=== PATIENT | female | born 1940 | race Caucasian/White ===

== ENCOUNTER 2022-10-12 10:06 | Inpatient (IN) | payer MEDICARE ==
[2022-10-12] MEDS ORDERED: Albuterol/Ipratropium 3.0-0.5 MG/3 ML Neb Soln NEB ONE (10:23)
[2022-10-12] MEDS: Sodium Chloride 0.9% 10 ML Syringe FLUSH PRN (10:25)
[2022-10-12 10:41] LABS: HEMATOCRIT 27.6 % (37.0-47.0); HEMOGLOBIN 8.8 g/dL (12.0-16.0); MEAN CORPUSCULAR HEMOGLOBIN 32.5 pg (27.0-34.0); MEAN CORPUSCULAR HGB CONC 31.9 g/dL (33.0-35.0); MEAN CORPUSCULAR VOLUME 101.8 fL (80-100); PLATELET COUNT,PLT 201 10^3/uL (150-450); RED BLOOD CELL COUNT 2.71 10^6/uL (4.2-5.4); WHITE BLOOD CELL COUNT,WBC 6.3 10^3/uL (5.0-10.0)
[2022-10-12 10:59] LABS: PROTHROMBIN TIME 10.2 SEC (9.0-12.0); PTT,PARTIAL THROMBOPLSTIN TIME 26.7 SEC (22.0-34.0)
[2022-10-12 11:00] LABS: BASOPHILS PERCENT AUTO 2.7 % (0.0-1.0); LYMPHOCYTES PERCENT AUTO 17.2 % (20.5-50.1); MONOCYTES PERCENT AUTO 21.2 % (2-8); NEUTROPHILS PERCENT AUTO 58.9 % (42.2-75.2)
[2022-10-12 11:05] LABS: BAND PERCENT MAN 16 %; LACTIC ACID 1.8 mmol/L (0.4-2.0); LYMPHOCYTES PERCENT MAN 23 % (20-50); MONOCYTES PERCENT MAN 12 % (2-8); SEG NEUTROPHILS PERCENT MAN 49 % (42-75)
[2022-10-12 11:08] LABS: ALBUMIN 2.9 g/dL (3.4-5.0); ANION GAP 12.6 mEq/L (7-13); BILIRUBIN TOTAL 1.3 mg/dL (0.2-1.0); CALCIUM 8.8 mg/dL (8.5-10.1); CREATININE 0.8 mg/dL (0.55-1.02); EST CRCL DRUG DOSING (CG) 47.95 mL/min; MAGNESIUM 1.8 mg/dL (1.8-2.4); POTASSIUM,K 3.6 mmol/L (3.5-5.1); PROTEIN TOTAL,TP 7.2 g/dL (6.4-8.2)
[2022-10-12 11:15] LABS: A/G RATIO 0.67
[2022-10-12 11:16] LABS: C-REACTIVE PROTEIN 16.5 mg/dL (0.0-0.9)
[2022-10-12] MEDS ORDERED: Iopamidol 755 Mg/ML 100 ML Bottle IVPUSH ONE (11:21)
[2022-10-12] MEDS ORDERED: Acetaminophen 500 MG Tab PO ONE (12:11)
[2022-10-12 13:39] LABS: APPEARANCE,URINE SLIGHTLY CLOUDY (CLEAR); BILIRUBIN,URINE NEGATIVE (NEGATIVE); COLOR,URINE YELLOW (YELLOW); GLUCOSE,URINE NEGATIVE (NEGATIVE); KETONES,URINE 40 (NEGATIVE); LEUKOCYTE ESTERASE,URINE SMALL (NEGATIVE); NITRITE,URINE NEGATIVE (NEGATIVE); OCCULT BLOOD,URINE TRACE-INTACT (NEGATIVE); PROTEIN,URINE 30 (NEGATIVE)
[2022-10-12] MEDS ORDERED: Sennosides/Docusate Sodium 50-8.6 MG Tab PO PRN (13:41)
[2022-10-12] MEDS ORDERED: Magnesium Hydroxide 400 MG/5 ML Susp 30 ML Cup PO PRN (13:41)
[2022-10-12] MEDS ORDERED: Polyethylene Glycol 3350 Powder 17 GM Packet PO PRN (13:41)
[2022-10-12] MEDS ORDERED: Ondansetron 4 MG/2 ML SDV IVPUSH PRN (13:41)
[2022-10-12] MEDS ORDERED: Albuterol/Ipratropium 3.0-0.5 MG/3 ML Neb Soln NEB PRN (13:41)
[2022-10-12] MEDS ORDERED: HYDROmorphone 0.5 MG/0.5 ML Syringe IVPUSH PRN (13:41)
[2022-10-12] MEDS ORDERED: Acetaminophen/oxyCODONE 325-5 MG Tab PO PRN (13:41)
[2022-10-12] MEDS ORDERED: Acetaminophen 325 MG Tab PO PRN (13:41)
[2022-10-12 13:44] LABS: AMPHETAMINES,URINE NEGATIVE (NEGATIVE); BARBITURATES,URINE NEGATIVE (NEGATIVE); BENZODIAZEPINE,URINE NEGATIVE (NEGATIVE); MDMA (ECSTASY), URINE NEGATIVE (NEGATIVE); METHADONE,URINE NEGATIVE (NEGATIVE); METHAMPHETAMINES,URINE NEGATIVE (NEGATIVE); OPIATES,URINE NEGATIVE (NEGATIVE); OXYCODONE,URINE NEGATIVE (NEGATIVE); PHENCYCLIDINE,URINE NEGATIVE (NEGATIVE); TCA,URINE NEGATIVE (NEGATIVE)
[2022-10-12] MEDS ORDERED: Dexamethasone 4 MG/ML SDV IVPUSH ONE (13:46)
[2022-10-12] MEDS ORDERED: hydrALAZINE 20 MG/ML SDV IVPUSH PRN (13:47)
[2022-10-12] MEDS ORDERED: Metoprolol Tartrate 5 MG/5 ML SDV IVPUSH PRN (13:47)
[2022-10-12] MEDS ORDERED: REMDESIVIR 200 MG in Sodium Chloride 0.9% 250 ML IV ONE ×2 (13:48→17:00)
[2022-10-12] MEDS ORDERED: Glucagon,Human Recombinant 1 MG Vial IM PRN (13:50)
[2022-10-12] MEDS ORDERED: 50% Dextrose in Water 50 ML Syringe IVPUSH PRN (13:50)
[2022-10-12 13:53] LABS: RBC,URINE 0-5 /HPF (0-5); WBC,URINE 20-30 /HPF (0-5/HPF)
[2022-10-12 13:54] LABS: BACTERIA,URINE FEW /HPF (0-FEW/HPF); EPITHELIAL CELLS,URINE MODERATE /HPF (NOT SEEN)
[2022-10-12] MEDS: Insulin Lispro 100 Units/ML 3 ML Vial SUBCUT SCH (17:12)
[2022-10-12] MEDS ORDERED: Famotidine 20 MG Tab PO SCH (21:00)
[2022-10-13 06:53] LABS: HEMATOCRIT 25.4 % (37.0-47.0); HEMOGLOBIN 8.2 g/dL (12.0-16.0); MEAN CORPUSCULAR HEMOGLOBIN 33.1 pg (27.0-34.0); MEAN CORPUSCULAR HGB CONC 32.3 g/dL (33.0-35.0); MEAN CORPUSCULAR VOLUME 102.4 fL (80-100); PLATELET COUNT,PLT 162 10^3/uL (150-450); RED BLOOD CELL COUNT 2.48 10^6/uL (4.2-5.4); WHITE BLOOD CELL COUNT,WBC 7.4 10^3/uL (5.0-10.0)
[2022-10-13 06:59] LABS: NEUTROPHILS PERCENT AUTO 59.8 % (42.2-75.2)
[2022-10-13 07:00] LABS: BASOPHILS PERCENT AUTO 2.3 % (0.0-1.0); MONOCYTES PERCENT AUTO 28.9 % (2-8)
[2022-10-13 07:02] LABS: ALBUMIN 2.5 g/dL (3.4-5.0); ANION GAP 9.9 mEq/L (7-13); BILIRUBIN TOTAL 0.7 mg/dL (0.2-1.0); BUN/CREATININE RATIO 20.8 (No establ ref range); CALCIUM 8.5 mg/dL (8.5-10.1); CREATININE 0.72 mg/dL (0.55-1.02); EST CRCL DRUG DOSING (CG) 52.34 mL/min; MAGNESIUM 2.1 mg/dL (1.8-2.4); POTASSIUM,K 3.9 mmol/L (3.5-5.1); PROTEIN TOTAL,TP 6.7 g/dL (6.4-8.2)
[2022-10-13 07:10] LABS: A/G RATIO 0.6; C-REACTIVE PROTEIN 22.9 mg/dL (0.0-0.9)
[2022-10-13 07:11] LABS: LYMPHOCYTES PERCENT MAN 31 % (20-50); MONOCYTES PERCENT MAN 16 % (2-8); SEG NEUTROPHILS PERCENT MAN 53 % (42-75)
[2022-10-13] MEDS: Furosemide 20 MG Tab PO SCH (08:56)
[2022-10-13] MEDS: Famotidine 20 MG Tab PO SCH (08:56)
[2022-10-13] MEDS: Dexamethasone 6 MG TABLET PO SCH (08:56)
[2022-10-13] MEDS: REMDESIVIR 100 MG in Sodium Chloride 0.9% 100 ML IV SCH (08:57)
[2022-10-13] MEDS: Enoxaparin 40 MG/0.4 ML Syringe SUBCUT SCH (08:57)
[2022-10-13] MEDS: Insulin Lispro 100 Units/ML 3 ML Vial SUBCUT SCH ×3 (09:14→16:54)
[2022-10-14 06:42] LABS: BASOPHILS PERCENT AUTO 2.1 % (0.0-1.0); HEMATOCRIT 25.3 % (37.0-47.0); HEMOGLOBIN 8.1 g/dL (12.0-16.0); LYMPHOCYTES PERCENT AUTO 17.1 % (20.5-50.1); MEAN CORPUSCULAR HEMOGLOBIN 32.8 pg (27.0-34.0); MEAN CORPUSCULAR VOLUME 102.4 fL (80-100); MONOCYTES PERCENT AUTO 31.7 % (2-8); NEUTROPHILS PERCENT AUTO 49.1 % (42.2-75.2); PLATELET COUNT,PLT 171 10^3/uL (150-450); RED BLOOD CELL COUNT 2.47 10^6/uL (4.2-5.4); WHITE BLOOD CELL COUNT,WBC 4.4 10^3/uL (5.0-10.0)
[2022-10-14 07:03] LABS: A/G RATIO 0.63; ALBUMIN 2.5 g/dL (3.4-5.0); ANION GAP 8.7 mEq/L (7-13); BILIRUBIN DIRECT 0.2 mg/dL (0.0-0.2); BILIRUBIN TOTAL 0.5 mg/dL (0.2-1.0); BUN/CREATININE RATIO 25.7 (No establ ref range); C-REACTIVE PROTEIN 11.8 mg/dL (0.0-0.9); CALCIUM 8.6 mg/dL (8.5-10.1); CREATININE 0.7 mg/dL (0.55-1.02); EST CRCL DRUG DOSING (CG) 53.83 mL/min; POTASSIUM,K 3.7 mmol/L (3.5-5.1); PROTEIN TOTAL,TP 6.5 g/dL (6.4-8.2)
[2022-10-14] MEDS: Insulin Lispro 100 Units/ML 3 ML Vial SUBCUT SCH ×3 (08:11→16:51)
[2022-10-14] MEDS: Famotidine 20 MG Tab PO SCH (08:42)
[2022-10-14] MEDS: Dexamethasone 6 MG TABLET PO SCH (08:43)
[2022-10-14] MEDS: Enoxaparin 40 MG/0.4 ML Syringe SUBCUT SCH (08:43)
[2022-10-14] MEDS: REMDESIVIR 100 MG in Sodium Chloride 0.9% 100 ML IV SCH (08:59)
[2022-10-14] MEDS: Furosemide 20 MG Tab PO SCH (09:19)
[2022-10-14] MEDS: Al and Mag Hydroxide/Diphenhydramine/Lidocaine/Simethicone 237 ML Bottle PO PRN ×3 (10:26→20:20)
[2022-10-15] MEDS: Al and Mag Hydroxide/Diphenhydramine/Lidocaine/Simethicone 237 ML Bottle PO PRN ×3 (06:10→22:41)
[2022-10-15 06:44] LABS: HEMATOCRIT 25.6 % (37.0-47.0); HEMOGLOBIN 8.2 g/dL (12.0-16.0); MEAN CORPUSCULAR HEMOGLOBIN 32.8 pg (27.0-34.0); MEAN CORPUSCULAR VOLUME 102.4 fL (80-100); PLATELET COUNT,PLT 184 10^3/uL (150-450); WHITE BLOOD CELL COUNT,WBC 2.5 10^3/uL (5.0-10.0)
[2022-10-15 06:51] LABS: BASOPHILS PERCENT AUTO 3.2 % (0.0-1.0); LYMPHOCYTES PERCENT AUTO 36.4 % (20.5-50.1); NEUTROPHILS PERCENT AUTO 28.4 % (42.2-75.2)
[2022-10-15 07:23] LABS: ALBUMIN 2.5 g/dL (3.4-5.0); ANION GAP 10.4 mEq/L (7-13); BILIRUBIN DIRECT 0.2 mg/dL (0.0-0.2); BILIRUBIN TOTAL 0.6 mg/dL (0.2-1.0); BUN/CREATININE RATIO 21.4 (No establ ref range); C-REACTIVE PROTEIN 5.5 mg/dL (0.0-0.9); CALCIUM 8.6 mg/dL (8.5-10.1); CREATININE 0.7 mg/dL (0.55-1.02); EST CRCL DRUG DOSING (CG) 53.83 mL/min; POTASSIUM,K 3.4 mmol/L (3.5-5.1); PROTEIN TOTAL,TP 6.4 g/dL (6.4-8.2)
[2022-10-15 07:24] LABS: A/G RATIO 0.64
[2022-10-15 08:12] LABS: BAND PERCENT MAN 8 %; LYMPHOCYTES PERCENT MAN 43 % (20-50); MONOCYTES PERCENT MAN 26 % (2-8); MYELOCYTE PERCENT MAN 2; SEG NEUTROPHILS PERCENT MAN 21 % (42-75)
[2022-10-15 08:13] LABS: ANISOCYTOSIS 2+ MODERATE
[2022-10-15 08:14] LABS: PLATELET COUNT ESTIMATE ADEQUATE
[2022-10-15] MEDS: Enoxaparin 40 MG/0.4 ML Syringe SUBCUT SCH (09:17)
[2022-10-15] MEDS: Furosemide 20 MG Tab PO SCH (09:18)
[2022-10-15] MEDS: Dexamethasone 6 MG TABLET PO SCH (09:18)
[2022-10-15] MEDS: Famotidine 20 MG Tab PO SCH (09:18)
[2022-10-15] MEDS: REMDESIVIR 100 MG in Sodium Chloride 0.9% 100 ML IV SCH (09:18)
[2022-10-15] MEDS: Insulin Lispro 100 Units/ML 3 ML Vial SUBCUT SCH ×3 (09:40→16:43)
[2022-10-15] MEDS ORDERED: Potassium Chloride 10 MEQ Tab.ER PO ONE (12:00)
[2022-10-15] MEDS ORDERED: Melatonin 3 MG Tab PO PRN (21:00)
[2022-10-15] MEDS: Sodium Chloride 0.9% 10 ML Syringe FLUSH PRN (22:41)
[2022-10-16 06:24] LABS: HEMATOCRIT 26.6 % (37.0-47.0); HEMOGLOBIN 8.6 g/dL (12.0-16.0); MEAN CORPUSCULAR HGB CONC 32.3 g/dL (33.0-35.0); MEAN CORPUSCULAR VOLUME 101.9 fL (80-100); PLATELET COUNT,PLT 178 10^3/uL (150-450); RED BLOOD CELL COUNT 2.61 10^6/uL (4.2-5.4); WHITE BLOOD CELL COUNT,WBC 2.2 10^3/uL (5.0-10.0)
[2022-10-16 06:26] LABS: LYMPHOCYTES PERCENT AUTO 48.4 % (20.5-50.1); NEUTROPHILS PERCENT AUTO 21.4 % (42.2-75.2)
[2022-10-16 06:27] LABS: BASOPHILS PERCENT AUTO 2.3 % (0.0-1.0); MONOCYTES PERCENT AUTO 27.9 % (2-8)
[2022-10-16 06:49] LABS: ALBUMIN 2.7 g/dL (3.4-5.0); ANION GAP 10.9 mEq/L (7-13); BILIRUBIN DIRECT 0.2 mg/dL (0.0-0.2); BILIRUBIN TOTAL 0.7 mg/dL (0.2-1.0); BUN/CREATININE RATIO 21.1 (No establ ref range); C-REACTIVE PROTEIN 3.5 mg/dL (0.0-0.9); CALCIUM 8.7 mg/dL (8.5-10.1); CREATININE 0.71 mg/dL (0.55-1.02); EST CRCL DRUG DOSING (CG) 53.07 mL/min; MAGNESIUM 1.9 mg/dL (1.8-2.4); POTASSIUM,K 3.9 mmol/L (3.5-5.1); PROTEIN TOTAL,TP 6.5 g/dL (6.4-8.2)
[2022-10-16 06:56] LABS: A/G RATIO 0.71
[2022-10-16] MEDS: Insulin Lispro 100 Units/ML 3 ML Vial SUBCUT SCH (08:09)
[2022-10-16 08:53] LABS: BAND PERCENT MAN 7 %; BASOPHILS PERCENT MAN 1; LYMPHOCYTES PERCENT MAN 56 % (20-50); MONOCYTES PERCENT MAN 18 % (2-8); NRBC MANUAL 1 /100WBC; SEG NEUTROPHILS PERCENT MAN 18 % (42-75)
[2022-10-16 08:54] LABS: ANISOCYTOSIS 1+ SLIGHT
[2022-10-16] MEDS: Furosemide 20 MG Tab PO SCH (08:58)
[2022-10-16] MEDS: Dexamethasone 6 MG TABLET PO SCH (08:58)
[2022-10-16] MEDS: Famotidine 20 MG Tab PO SCH (08:58)
[2022-10-16] MEDS: Enoxaparin 40 MG/0.4 ML Syringe SUBCUT SCH (08:58)
[2022-10-16] MEDS: REMDESIVIR 100 MG in Sodium Chloride 0.9% 100 ML IV SCH (08:59)
[2022-10-16] MEDS: Sodium Chloride 0.9% 10 ML Syringe FLUSH PRN (09:00)
[2022-10-16] MEDS: Al and Mag Hydroxide/Diphenhydramine/Lidocaine/Simethicone 237 ML Bottle PO PRN (09:01)
== END 2022-10-16 11:50 | disposition home or self-care (01) | DRG 177 ==
LOC: DL.ED 10:06 → DL.MS 13:30 → DL.ED 13:36 → DL.MS 13:50 → OBSVTOIN 10-15 13:50
PROVIDERS: ADMIT Internal Medicine; ATTEND Internal Medicine
PROC: XW033E5 Introduction of Remdesivir Anti-infective into Peripheral Vein, Percutaneous Approach, New Technology Group 5 (ICD-10-PCS; principal; 2022-10-15)
PROC: 8E0ZXY6 Isolation (ICD-10-PCS; 2022-10-15)
PROC: 3E0333Z Introduction of Anti-inflammatory into Peripheral Vein, Percutaneous Approach (ICD-10-PCS; 2022-10-15)
DX: U07.1 COVID-19 (principal); R09.02 Hypoxemia; G93.41 Metabolic encephalopathy; J96.01 Acute respiratory failure with hypoxia; I27.20 Pulmonary hypertension, unspecified; R91.8 Other nonspecific abnormal finding of lung field; K44.9 Diaphragmatic hernia without obstruction or gangrene; K76.89 Other specified diseases of liver; D50.9 Iron deficiency anemia, unspecified; I50.9 Heart failure, unspecified; R73.9 Hyperglycemia, unspecified; E88.09 Other disorders of plasma-protein metabolism, not elsewhere classified; Z79.899 Other long term (current) drug therapy; Z87.01 Personal history of pneumonia (recurrent); E87.6 Hypokalemia
CPT/HCPCS: 36415 ×4; 71045; 71275; 80053 ×4; 80305; 80307; 81001; 82140; 82248 ×3; 82550; 82947 ×10; 83605; 83735 ×4; 83880; 84145; 84484; 85025 ×4; 85379; 85610; 85730; 86140 ×4; 87040 ×2; 87086; 87804 ×2; 93005; 94010; 94640; 96372 ×3; 96374; 96376 ×3; A9270 ×9; G0378 ×6; J0248 ×4; J1100; J1650 ×3; J1815; J3490 ×3; J7050; J8540 ×3; Q9967; U0002; 99223; 99232; 99238; J7620-GY